=== PATIENT | male | born 1950 | race Two or more races ===

== ENCOUNTER 2018-07-20 05:40 | Day surgery (SDC) | payer OTHER ==
[~2018-07-20 05:40] MED LIST: ALLUPURINOL PO; AVAPRO300 MG PO; CARDURA PO; GABAPENT PO; LIPITO PO; NORVASC PO; TOPROL XL100 M1 PO
== END 2018-07-20 10:55 | disposition home or self-care (01) ==
LOC: CIR.AMB 05:40
DX: M65.842 Other synovitis and tenosynovitis, left hand (principal)

== ENCOUNTER 2020-10-30 05:00 | Day surgery (SDC) | payer OTHER ==
[~2020-10-30 05:00] MED LIST changes: +CARDURA XL4 MG PO; +NORVASC10 MG PO
== END 2020-10-30 10:30 | disposition home or self-care (01) ==
LOC: CIR.AMB 05:00
PROVIDERS: ATTEND Surgery Surgery of the Hand
DX: M65.841 Other synovitis and tenosynovitis, right hand (principal); Z20.822 Contact with and (suspected) exposure to COVID-19